=== PATIENT | female | born 1960 | race African-American/Black ===

== ENCOUNTER 2018-05-20 18:54 | Inpatient (IN) | payer MEDICARE, OTHER ==
[~2018-05-20] VITALS: Ht 152.4 cm; Wt 59.9 kg
[~2018-05-20 18:54] MED LIST: ACET-2605 PO; BENZ1TAB7 PO; CALC-811 PO; CLON0.5T PO; DOCU-141 PO; FAMO-132 PO; LEVO50TA66 PO; PALI156D IM
[2018-05-20 19:56] LABS: BASOPHILS # (AUTO) 0.1 K/uL (0.0-8.0); BASOPHILS % (AUTO) 0.8 % (0.0-2.0); EOSINOPHILS # (AUTO) 0.1 K/uL (0.0-0.7); EOSINOPHILS % (AUTO) 0.9 % (0.0-7.0); HEMATOCRIT 37.8 % (31.2-41.9); HEMOGLOBIN 12.6 g/dL (10.9-14.3); LYMPHOCYTES # (AUTO) 3.9 K/uL (20.0-40.0); MEAN CORPUSCULAR HEMOGLOBIN 27.5 uug (24.7-32.8); MEAN CORPUSCULAR HGB CONC 33 g/dL (32.3-35.6); MEAN CORPUSCULAR VOLUME 82.3 fL (75.5-95.3); MONOCYTES # (AUTO) 0.8 K/uL (2.0-10.0); MONOCYTES % (AUTO) 7.4 % (0.0-11.0); NEUTROPHILS # (AUTO) 6.4 K/uL (1.8-8.9); NEUTROPHILS % (AUTO) 56.9 % (38.5-71.5); PLATELET COUNT (AUTO) 197 K/uL (179-408); WHITE BLOOD COUNT (AUTO) 11.3 K/uL (3.8-11.8)
[2018-05-20 20:00] LABS: *BILIRUBIN,URIN NEGATIVE (NEGATIVE); *BLOOD, URINE NEGATIVE (NEGATIVE); *COLOR,URINE YELLOW (YELLOW); *KETONES,URINE TRACE (NEGATIVE); *PROTEIN,URINE NEGATIVE (NEGATIVE); *UROBILINOGEN,URINE 0.2 E.U./dl (NORMAL); NITRITE, URINE NEGATIVE (NEGATIVE); PH,URINE 5.5 (5.0-8.0); UGLUCOSE NEGATIVE (NEGATIVE)
[2018-05-20 20:03] LABS: CARBON DIOXIDE 25 mmol/L (21-32); CHLORIDE 103 mmol/L (98-107); CREATININE 0.9 mg/dL (0.6-1.3); GLUCOSE 95 mg/dL (74-106); POTASSIUM 4.2 mmol/L (3.5-5.1); UREA NITROGEN, BLOOD 17 mg/dL (7-18)
[2018-05-20 20:05] LABS: ETHANOL < 3 MG/DL (0-0)
[2018-05-20 20:08] LABS: ACETAMINOPHEN < 2.0 ug/mL (10-30); ALANINE AMINOTRANSFERASE 26 U/L (14-59); ALKALINE PHOSPHATASE 100 U/L (50-136); ASPARTATE AMINOTRANSFERASE 18 U/L (15-37); BILIRUBIN,DIRECT < 0.1 mg/dL (0.0-0.2); BILIRUBIN,TOTAL 0.2 mg/dL (0.2-1.0)
[2018-05-20 20:11] LABS: *AMPHETAMINE, URINE NEGATIVE (NEGATIVE); *BARBITURATE, URINE NEGATIVE (NEGATIVE); *CANNABINOID, URINE NEGATIVE (NEGATIVE); *COCCAINE, URINE NEGATIVE (NEGATIVE); *OPIATE, URINE NEGATIVE (NEGATIVE); *PHENCYCLIDINE SCREEN,URINE NEGATIVE (NEGATIVE)
[2018-05-20 20:28] LABS: *CLARITY,URINE HAZY (CLEAR); LEUKOCYTE ESTERASE ,URINE 1+ (NEGATIVE)
[2018-05-20 20:29] LABS: BACTERIA,URINE FEW /HPF (NONE SEEN); MUCUS,URINE FEW /LPF (0-FEW); RBC,URINE 0-3 /HPF (0-3); SQUAMOUS EPITHELIAL CELL,UR MODERATE /HPF (NONE SEEN)
[2018-05-20 20:32] LABS: THYROID STIMULATING HORMONE 0.937 mIU/mL (0.358-3.740)
[2018-05-20] MEDS ORDERED: HYDROCODONE/APAP 5-325MG TABLET PO PRN (21:45)
[2018-05-20] MEDS ORDERED: ACETAMINOPHEN 325 MG TABLET PO PRN (21:45)
[2018-05-20] MEDS ORDERED: ACETAMINOPHEN ES 500 MG TABLET PO SCH (21:45)
[2018-05-20] MEDS ORDERED: ONDANSETRON 4 MG/2 ML VIAL IV PRN (21:45)
[2018-05-20 22:05] VITALS: BP 106/89
[2018-05-21] MEDS ORDERED: CEFTRIAXONE 1 G VIAL ONE (00:11)
[2018-05-21] MEDS: CEFTRIAXONE 1 G in IV DEXTROSE 5% 50 ML IV SCH ×2 (00:49→22:29)
[2018-05-21] MEDS ORDERED: CALCIUM CARBONATE 500 MG TAB.CHEW PO PRN (01:00)
[2018-05-21 03:25] VITALS: BP 104/72
[2018-05-21 06:33] LABS: BASOPHILS # (AUTO) 0.1 K/uL (0.0-8.0); EOSINOPHILS # (AUTO) 0.1 K/uL (0.0-0.7); EOSINOPHILS % (AUTO) 1.2 % (0.0-7.0); HEMATOCRIT 38.5 % (31.2-41.9); HEMOGLOBIN 12.9 g/dL (10.9-14.3); LYMPHOCYTES % (AUTO) 33.3 % (20.5-51.5); MEAN CORPUSCULAR HEMOGLOBIN 27.7 uug (24.7-32.8); MEAN CORPUSCULAR HGB CONC 34 g/dL (32.3-35.6); MEAN CORPUSCULAR VOLUME 82.4 fL (75.5-95.3); MONOCYTES # (AUTO) 0.7 K/uL (2.0-10.0); MONOCYTES % (AUTO) 8.2 % (0.0-11.0); NEUTROPHILS # (AUTO) 5.1 K/uL (1.8-8.9); NEUTROPHILS % (AUTO) 56.3 % (38.5-71.5); PLATELET COUNT (AUTO) 184 K/uL (179-408); RED BLOOD CELL COUNT(AUTO) 4.67 MIL/uL (3.63-4.92)
[2018-05-21] MEDS: LEVOTHYROXINE SODIUM 50 MCG TABLET PO SCH (06:36)
[2018-05-21 06:48] LABS: BILIRUBIN,TOTAL 0.3 mg/dL (0.2-1.0); CREATININE 0.9 mg/dL (0.6-1.3); MAGNESIUM 1.8 mg/dL (1.8-2.4); PHOSPHOROUS 4.2 mg/dL (2.5-4.9); POTASSIUM 4.3 mmol/L (3.5-5.1); TOTAL PROTEIN, SERUM 7.8 g/dL (6.4-8.2)
[2018-05-21 06:55] LABS: THYROID STIMULATING HORMONE 0.836 mIU/mL (0.358-3.740)
[2018-05-21] MEDS: CLONAZEPAM 0.5 MG TABLET PO SCH ×2 (09:24→17:25)
[2018-05-21] MEDS: FAMOTIDINE 20 MG TABLET PO SCH (09:24)
[2018-05-21] MEDS: BENZTROPINE MESYLATE 1 MG TABLET PO SCH ×2 (09:24→17:25)
[2018-05-21] MEDS: CALCIUM CARB/VITAMIN D 500MG-200UNITS TABLET PO SCH ×2 (09:24→17:24)
[2018-05-21 09:27] VITALS: BP 137/57
[2018-05-21 11:39] VITALS: BP 122/79
[2018-05-21] MEDS: risperiDONE 0.25 MG TABLET PO SCH ×2 (12:30→17:25)
[2018-05-21 16:04] VITALS: BP 126/84
[2018-05-21 19:17] VITALS: BP 130/64
[2018-05-21] MEDS: DOCUSATE SODIUM 100 MG CAPSULE PO SCH (20:39)
[2018-05-22 03:22] VITALS: BP 107/69
[2018-05-22] MEDS: LEVOTHYROXINE SODIUM 50 MCG TABLET PO SCH ×2 (06:37→06:48)
[2018-05-22 06:54] LABS: EOSINOPHILS # (AUTO) 0.1 K/uL (0.0-0.7); HEMOGLOBIN 12.7 g/dL (10.9-14.3); MEAN CORPUSCULAR HEMOGLOBIN 27.3 uug (24.7-32.8); MONOCYTES # (AUTO) 0.5 K/uL (2.0-10.0); NEUTROPHILS # (AUTO) 3.3 K/uL (1.8-8.9)
[2018-05-22 07:00] LABS: BASOPHILS % (AUTO) 0.5 % (0.0-2.0); EOSINOPHILS % (AUTO) 1.5 % (0.0-7.0); HEMATOCRIT 38.6 % (31.2-41.9); LYMPHOCYTES # (AUTO) 2.4 K/uL (20.0-40.0); MEAN CORPUSCULAR HGB CONC 33 g/dL (32.3-35.6); MEAN CORPUSCULAR VOLUME 82.9 fL (75.5-95.3); PLATELET COUNT (AUTO) 186 K/uL (179-408); RED BLOOD CELL COUNT(AUTO) 4.65 MIL/uL (3.63-4.92); WHITE BLOOD COUNT (AUTO) 6.3 K/uL (3.8-11.8)
[2018-05-22 07:01] LABS: CREATININE 0.8 mg/dL (0.6-1.3); POTASSIUM 4.1 mmol/L (3.5-5.1)
[2018-05-22] MEDS: BENZTROPINE MESYLATE 1 MG TABLET PO SCH ×2 (08:25→17:12)
[2018-05-22] MEDS: risperiDONE 0.25 MG TABLET PO SCH ×2 (08:25→17:12)
[2018-05-22] MEDS: CLONAZEPAM 0.5 MG TABLET PO SCH ×2 (08:25→17:13)
[2018-05-22] MEDS: FAMOTIDINE 20 MG TABLET PO SCH (08:25)
[2018-05-22] MEDS: CALCIUM CARB/VITAMIN D 500MG-200UNITS TABLET PO SCH ×2 (08:25→17:12)
[2018-05-22 11:24] VITALS: BP 125/72
[2018-05-22 15:57] VITALS: BP 115/70
[2018-05-22] MEDS: NITROFURANTOIN/NITROFURAN MAC 100 MG CAPSULE PO SCH ×2 (17:12→21:19)
[2018-05-22 19:00] VITALS: BP 141/67
[2018-05-22] MEDS: DOCUSATE SODIUM 100 MG CAPSULE PO SCH (21:19)
[2018-05-23 04:00] VITALS: BP 112/66
[2018-05-23] MEDS: LEVOTHYROXINE SODIUM 50 MCG TABLET PO SCH (06:30)
[2018-05-23 06:47] LABS: BASOPHILS % (AUTO) 0.4 % (0.0-2.0); EOSINOPHILS # (AUTO) 0.1 K/uL (0.0-0.7); EOSINOPHILS % (AUTO) 1.5 % (0.0-7.0); HEMATOCRIT 40.4 % (31.2-41.9); HEMOGLOBIN 13.4 g/dL (10.9-14.3); LYMPHOCYTES # (AUTO) 2.4 K/uL (20.0-40.0); LYMPHOCYTES % (AUTO) 37.7 % (20.5-51.5); MEAN CORPUSCULAR HGB CONC 33 g/dL (32.3-35.6); MEAN CORPUSCULAR VOLUME 81.5 fL (75.5-95.3); MONOCYTES # (AUTO) 0.5 K/uL (2.0-10.0); MONOCYTES % (AUTO) 7.9 % (0.0-11.0); NEUTROPHILS # (AUTO) 3.4 K/uL (1.8-8.9); NEUTROPHILS % (AUTO) 52.5 % (38.5-71.5); PLATELET COUNT (AUTO) 201 K/uL (179-408); RED BLOOD CELL COUNT(AUTO) 4.96 MIL/uL (3.63-4.92); WHITE BLOOD COUNT (AUTO) 6.5 K/uL (3.8-11.8)
[2018-05-23 06:56] LABS: CREATININE 0.9 mg/dL (0.6-1.3); MAGNESIUM 1.9 mg/dL (1.8-2.4); PHOSPHOROUS 3.9 mg/dL (2.5-4.9)
[2018-05-23] MEDS: BENZTROPINE MESYLATE 1 MG TABLET PO SCH ×2 (08:18→16:56)
[2018-05-23] MEDS: risperiDONE 0.25 MG TABLET PO SCH ×2 (08:19→16:57)
[2018-05-23] MEDS: CLONAZEPAM 0.5 MG TABLET PO SCH ×2 (08:19→16:57)
[2018-05-23] MEDS: NITROFURANTOIN/NITROFURAN MAC 100 MG CAPSULE PO SCH ×2 (08:19→20:23)
[2018-05-23] MEDS: CALCIUM CARB/VITAMIN D 500MG-200UNITS TABLET PO SCH ×2 (08:19→16:56)
[2018-05-23] MEDS: FAMOTIDINE 20 MG TABLET PO SCH (08:19)
[2018-05-23 11:26] VITALS: BP 111/72
[2018-05-23] MEDS: CYANOCOBALAMIN 1000 MCG/ML VIAL IM SCH (11:51)
[2018-05-23 15:30] VITALS: BP 121/73
[2018-05-23 20:00] VITALS: BP 109/53
[2018-05-23] MEDS: DOCUSATE SODIUM 100 MG CAPSULE PO SCH (20:23)
[2018-05-24 04:00] VITALS: BP 102/60
[2018-05-24] MEDS: LEVOTHYROXINE SODIUM 50 MCG TABLET PO SCH (06:32)
[2018-05-24] MEDS: CLONAZEPAM 0.5 MG TABLET PO SCH (08:01)
[2018-05-24] MEDS: risperiDONE 0.25 MG TABLET PO SCH (08:01)
[2018-05-24] MEDS: CYANOCOBALAMIN 1000 MCG/ML VIAL IM SCH (08:01)
[2018-05-24] MEDS: BENZTROPINE MESYLATE 1 MG TABLET PO SCH (08:01)
[2018-05-24] MEDS: CALCIUM CARB/VITAMIN D 500MG-200UNITS TABLET PO SCH (08:01)
[2018-05-24] MEDS: NITROFURANTOIN/NITROFURAN MAC 100 MG CAPSULE PO SCH (08:01)
[2018-05-24] MEDS: FAMOTIDINE 20 MG TABLET PO SCH (08:01)
[2018-05-24 11:00] VITALS: BP 100/58
[2018-05-24] MEDS ORDERED: CYAN10009 PO (13:17)
[2018-05-24] MEDS ORDERED: RISP0.253 PO (13:17)
[2018-05-24] MEDS ORDERED: NITR100C11 PO (13:17)
[2018-05-24] MEDS ORDERED: LACT1CAP59 PO (13:19)
[2018-05-24] MEDS ORDERED: ACET325T53 PO (13:24)
[2018-05-24 15:32] VITALS: BP 123/76
== END 2018-05-24 16:00 | DRG 689 ==
LOC: ER 18:55 → MED 21:48
PROVIDERS: ADMIT Internal Medicine; ATTEND Internal Medicine
DX: N39.0 Urinary tract infection, site not specified (principal); G92 Toxic encephalopathy; F20.0 Paranoid schizophrenia; B95.1 Streptococcus, group B, as the cause of diseases classified elsewhere; E03.9 Hypothyroidism, unspecified; F70 Mild intellectual disabilities; R73.03 Prediabetes; M81.0 Age-related osteoporosis without current pathological fracture; K21.9 Gastro-esophageal reflux disease without esophagitis; T84.84XS Pain due to internal orthopedic prosthetic devices, implants and grafts, sequela; M79.662 Pain in left lower leg; Z79.899 Other long term (current) drug therapy; M21.072 Valgus deformity, not elsewhere classified, left ankle; Z90.49 Acquired absence of other specified parts of digestive tract; E53.8 Deficiency of other specified B group vitamins
CPT/HCPCS: 36415; 70030-TC; 70450; 71045; 71250; 73590; 73630; 80307; 83550; 83605; 83735; 84100; 84443; 85025; 85730; 87040; 87077; 87086; 93005; A4663; G0378; G0480; G0480-TC; J0696; J3420; J7040; J7060

== ENCOUNTER 2018-10-01 10:07 | Emergency (ER) | payer MEDICARE, OTHER ==
[~2018-10-01] VITALS: Ht 157.5 cm; Wt 59.9 kg
[~2018-10-01 10:07] MED LIST changes: -ACET-2605 PO; -CALC-811 PO; +CALC500T13 PO; +CYAN10009 PO; -DOCU-141 PO; +DOCU250C14 PO; -FAMO-132 PO; +MULT-15 PO; -PALI156D IM; +PALI546S IM; +VALB40CA PO
--- NOTE | 2018-10-01 10:58 | NUR ---
pt is in room #2a. dr garcía evaluated the pt.
[2018-10-01] MEDS ORDERED: KETOROLAC TROMETHAMINE 60 MG INJ IM ONE ×2 (11:15→11:19)
--- NOTE | 2018-10-01 11:35 | NUR ---
PT WAS D/C'd TO HOME. D/C INSTRUCTIONS GIVEN TO THE PT.
[2018-10-01 11:36] VITALS: BP 132/76
== END 2018-10-01 11:37 | disposition home or self-care (01) ==
LOC: ER 10:07
DX: M17.12 Unilateral primary osteoarthritis, left knee (principal); E03.9 Hypothyroidism, unspecified; Z88.0 Allergy status to penicillin; Z88.5 Allergy status to narcotic agent; Z79.899 Other long term (current) drug therapy
CPT/HCPCS: 73564; 96372; 99283; J1885; A4663

== ENCOUNTER 2019-02-24 17:15 | Emergency (ER) | payer MEDICARE, OTHER ==
[~2019-02-24] VITALS: Ht 154.9 cm; Wt 55.3 kg
[2019-02-24] MEDS ORDERED: ACET-73 PO (17:34)
[2019-02-24] MEDS ORDERED: ACETAMINOPHEN 325 MG TABLET ONE (18:17)
[2019-02-24] MEDS: ACETAMINOPHEN 325 MG TABLET PO ONE (18:17)
--- NOTE | 2019-02-24 18:17 | NUR ---
PT WAS EVALUATED BY DR CLARKE. PT WAS D/C'd TO HOME. D/C INSTRUCTIONS GIVEN TO THE PT AND TO HER CAREGIVER.
[2019-02-24 18:18] VITALS: BP 128/72
== END 2019-02-24 18:19 | disposition home or self-care (01) ==
LOC: ER 17:15
DX: M54.5 Low back pain (principal); F20.9 Schizophrenia, unspecified; F32.9 Major depressive disorder, single episode, unspecified; E03.9 Hypothyroidism, unspecified; Z88.0 Allergy status to penicillin; Z88.5 Allergy status to narcotic agent; Z79.899 Other long term (current) drug therapy
CPT/HCPCS: 72100; 72220; A4663